=== PATIENT | male | born 1965 | race Hispanic/Latino ===

== ENCOUNTER 2020-09-06 01:08 | Emergency (ER) | payer OTHER | END 2020-09-06 05:23 | disposition home or self-care (01) | LOC: ERS 01:08 | DX: G40.909 Epilepsy, unspecified, not intractable, without status epilepticus (principal); I10 Essential (primary) hypertension; E10.9 Type 1 diabetes mellitus without complications | CPT/HCPCS: 36415; 80164; 99284 ==

== ENCOUNTER 2020-09-13 06:51 | Outpatient (CLI) | payer OTHER ==
--- NOTE | 2020-09-13 07:34 | ULT ---
Carotid duplex sonogram HISTORY: Seizures. FINDINGS: Right: Mild plaque. Color and spectral Doppler evaluation, peak systolic velocity of and IC to CC rat io of 1.2 suggest no hemodynamically significant stenosis within the extracranial right ICA. Antegrade flow within the vertebral artery. Left: Mild plaque. Color and spectral Doppler evaluation, peak systolic velocity of 74 cm/s, and IC t o CC ratio 1.1 suggest no hemodynamically significant stenosis within the extracranial left ICA. Antegrade flow within the vertebral artery. IMPRESSION : Mild plaque. No evidence of significant stenosis.
== END 2020-09-13 06:52 | disposition home or self-care (01) ==
LOC: BICULT 06:51
PROVIDERS: ATTEND Psychiatry & Neurology Neurology
DX: G40.209 Localization-related (focal) (partial) symptomatic epilepsy and epileptic syndromes with complex partial seizures, not intractable, without status epilepticus (principal); I65.23 Occlusion and stenosis of bilateral carotid arteries
CPT/HCPCS: 82565; 93880